=== PATIENT | female | born 1945 | race Caucasian/White ===

== ENCOUNTER 2019-02-21 23:31 | Observation (INO) | payer MEDICARE, OTHER ==
[~2019-02-21] VITALS: Ht 157.5 cm; Wt 68.9 kg
[2019-02-22] VITALS (7 sets, daily range): BP systolic 109–178; BP diastolic 56–81
[2019-02-22 00:09] LABS: BASOPHILS # (AUTO) 0.1 (0.0-0.1); BASOPHILS % 1.2 % (0.0-1.0); EOSINOPHILS # (AUTO) 0.2 (0.0-0.4); EOSINOPHILS % 2.7 % (0.0-6.0); HEMATOCRIT 40.9 % (34.2-44.1); HEMOGLOBIN 13.8 g/dL (12.0-16.0); LYMPHOCYTES # (AUTO) 2.6 (1.0-3.2); LYMPHOCYTES % 44.6 % (18.0-39.1); MEAN CORPUSCULAR HEMOGLOBIN 28.3 pg (28-32); MEAN CORPUSCULAR HGB CONC 33.7 g/dL (31-35); MEAN CORPUSCULAR VOLUME 83.8 fL (81-99); MONOCYTES # (AUTO) 0.5 (0.2-0.8); MONOCYTES % 7.7 % (4.4-11.3); NEUTROPHILS # (AUTO) 2.5 (2.1-6.9); NEUTROPHILS % 43.6 % (38.7-80.0); PLATELET COUNT 240 x10e3/uL (140-360); RED BLOOD COUNT 4.88 x10e6/uL (3.6-5.1); RED CELL DISTRIBUTION WIDTH 12.7 % (11.7-14.4)
[2019-02-22 00:16] LABS: INR 0.87; PROTHROMBIN TIME 12.3 seconds (11.9-14.5)
[2019-02-22 00:17] LABS: PARTIAL THROMBOPLASTIN TIME 29.3 seconds (23.8-35.5)
[2019-02-22 00:24] LABS: ALANINE AMINOTRANSFERASE 14 IU/L (0-55); ALBUMIN 4.4 g/dL (3.5-5.0); ALBUMIN/GLOBULIN RATIO 1.4 (0.8-2.0); ALKALINE PHOSPHATASE 51 IU/L (40-150); BLOOD UREA NITROGEN 20 mg/dL (7-26); BUN/CREATININE RATIO 22 (6-25); CALCIUM 10.1 mg/dL (8.4-10.2); CARBON DIOXIDE 29 mmol/L (22-29); CREATINE KINASE 67 IU/L (29-168); CREATININE, SERUM 0.92 mg/dL (0.57-1.11); EST GLOMERULAR FILTRATION RATE 60 ML/MIN (60-); GLUCOSE 93 mg/dL (74-118)
--- NOTE | 2019-02-22 00:29 | Diagnostic Imaging Report ---
A single frontal view of the chest. HISTORY: Chest pain, congestion COMPARISON: None available. DISCUSSION: Portable technique, limits sensitivity of the exam. Soft tissue attenuation partially limits sensitivity of the exam. Overlying monitoring leads. Tubes/Lines: None Lungs and pleura: Mildly low lung volumes result in bibasilar vascular crowding, accentuation of the pulmonary interstitial markings, central pulmonary vasculature, and the cardiac silhouette. Allowing for these limitations, the findings are as follows: Minimal lingular atelectasis. No evidence of a consolidative pneumonia or pulmonary alveolar edema. No definite pleural effusion or pneumothorax is identified. Heart and mediastinum: The cardiomediastinal silhouette appear(s) unremarkable. Bones and soft tissues: Appear unremarkable, given this limited exam. IMPRESSION: 1. Minimal lingular atelectasis. 2. Otherwise, no acute radiographic abnormality. Signed by: Dr. Perico Rhodes D.O., M.M.M. on 02/22/2019 12:26 AM
[2019-02-22 00:34] LABS: ANION GAP 15.8 mmol/L (8-16); CHLORIDE 98 mmol/L (98-107); SODIUM 140 mmol/L (136-145)
[2019-02-22 00:46] LABS: POTASSIUM 2.8 mmol/L (3.5-5.1)
[2019-02-22] MEDS ORDERED: POTASSIUM CHLORIDE 20 MEQ TAB CR PO STA (00:49)
[2019-02-22] MEDS ORDERED: KCL 20MEQ/.9 SOD CHL 1,000 ML IV ONE (01:00)
[2019-02-22] MEDS ORDERED: ASPIRIN 81 MG CHEW TAB PO ONE (01:00)
[2019-02-22] MEDS ORDERED: ONDANSETRON HCL INJ 2MG/ML 2ML 2 MG/ML VIAL IV PRN (01:00)
--- OUTSIDE RECORDS SUMMARY | 2019-02-22 01:06 | XMS REPORT ---
Author [facility] Address Unknown Phone Unavailable Care Team Providers Care Dredge Master Name Role Phone Noelle SHIRLEY Unavailable Unavailable Problems This patient has no known problems. Allergies, Adverse Reactions, Alerts This patient has no known allergies or adverse reactions. Medications This patient has no known medications. Results Test Description Test Time Test Comments Text Results Atomic Results Result Comments CHEST SINGLE (PORTABLE) 2019-02-22 00:23:00 [place] [address] Patient Name: BRYCE RHODES MR #: [id number] : 1945 Age/Sex: 73/F Req #: [id number] Adm Physician: Ordered by: KIMBERLY SHIRLEY MD Report #: [id number] Location: ER Room/Bed: Procedure: [id number] DX/CHEST SINGLE (PORTABLE) Exam Date: 02/21/19 Exam Time: 2359 REPORT STATUS: Signed A single frontal view of the chest. HISTORY: Chest pain, congestion COMPARISON: None available. DISCUSSION: Portable technique, limits sensitivity of the exam. Soft tissue attenuation partially limits sensitivity of the exam. Overlying monitoring leads. Tubes/Lines: None Lungs and pleura: Mildly low lung volumes result in bibasilar vascular crowding, accentuation of the pulmonary interstitial markings, central pulmonary vasculature, and the cardiac silhouette. Allowing for these limitations, the findings are as follows: Minimal lingular atelectasis. No evidence of a consolidative pneumonia or pulmonary alveolar edema. No definite pleural effusion or pneumothorax is identified. Heart and mediastinum: The cardiomediastinal silhouette appear(s) unremarkable. Bones and soft tissues: Appear unremarkable, given this limited exam. IMPRESSION: 1. Minimal lingular atelectasis. 2. Otherwise, no acute radiographic abnormality. Signed by: Dr. Kapil Rhodes D.O., M.M.M. on 02/22/2019 12:26 AM Dictated By: KAPIL RHODES DO Transcribed By: LONDON on 02/22/1925 COPY TO: KIMBERLY SHIRLEY MD
[2019-02-22] MEDS ORDERED: FAMOTIDINE 20 MG/2 ML VIAL IV ONE (01:08)
[2019-02-22] MEDS ORDERED: FAMOTIDINE 20 MG/2 ML VIAL IV STA (01:32)
[2019-02-22] MEDS ORDERED: OCUVITE TABLET1 EAC1 PO (01:37)
[2019-02-22] MEDS ORDERED: CLONIDINE HCL0.1 MG PO (01:37)
[2019-02-22] MEDS ORDERED: ASPIR 8181 MG PO (01:37)
[2019-02-22] MEDS ORDERED: ATENOLOL25 MG PO (01:37)
[2019-02-22] MEDS ORDERED: CALCIUM 500+D1 EACH PO (01:37)
[2019-02-22] MEDS ORDERED: LEVOTHYROXINE75 MCG PO (01:37)
[2019-02-22] MEDS ORDERED: VITAMIN E400 UNIT PO (01:37)
[2019-02-22] MEDS ORDERED: FISH OIL 1,0001 EAC2 PO (01:37)
[2019-02-22] MEDS ORDERED: FENOFIBRATE145 MG PO (01:37)
[2019-02-22] MEDS ORDERED: ESIDRIX25 MG PO (01:37)
[2019-02-22 01:59] LABS: BACTERIA,URINE MANY /HPF; EPITHELIAL CELLS,URINE FEW /LPF; MUCUS,URINE FEW (RARE); RENAL EPITHELIAL CELLS,URINE FEW; TRANSITIONAL EPI CELLS,URINE FEW; WBC,URINE (MAN) 21-50 /HPF (0-5)
[2019-02-22 02:04] LABS: BILIRUBIN,URINE NEGATIVE (NEGATIVE); CLARITY,URINE SL CLOUDY (CLEAR); COLOR,URINE YELLOW (YELLOW); KETONES,URINE NEGATIVE (NEGATIVE); LEUKOCYTE ESTERASE ,URINE TRACE (NEGATIVE); NITRITE,URINE NEGATIVE (NEGATIVE); PROTEIN,URINE DIPSTICK NEGATIVE (NEGATIVE); URINE UROBILINOGEN 0.2 mg/dL (0.2 - 1)
[2019-02-22] MEDS: HYDRALAZINE HCL 20 MG/ML VIAL IV PRN ×2 (02:51→11:29)
--- NOTE | 2019-02-22 05:30 | NUR ---
PATIENT IS AOX4, NO SIGNS OF DISTRESS NOTED. PATIENT VOICES NO PAIN AT THIS TIME, FAMILY MEMBERS PRESENT. IV IS FLOWING AT ORDERED RATE, BOTH SIDE RAILS ARE UP, BED IN LOWEST POSITION, CALL LIGHT WITHIN REACH, WILL CONTINUE TO MONITOR.
[2019-02-22] MEDS ORDERED: ASPIRIN 81 MG CHEW TAB PO SCH ×2 (07:15→09:00)
[2019-02-22] MEDS ORDERED: LEVOTHYROXINE SODIUM 75 MCG TAB PO SCH (07:30)
[2019-02-22] MEDS ORDERED: FAMOTIDINE 20 MG/2 ML VIAL IV SCH ×2 (09:00→09:30)
[2019-02-22] MEDS ORDERED: ATENOLOL 50 MG TAB PO SCH (09:00)
[2019-02-22] MEDS ORDERED: FENOFIBRATE 145 MG TAB PO SCH (09:00)
[2019-02-22] MEDS ORDERED: POTASSIUM CHLORIDE 20 MEQ TAB CR PO SCH (09:00)
[2019-02-22] MEDS ORDERED: ASPIRIN 81 MG ENTERIC COATED PO SCH (09:00)
[2019-02-22 09:06] LABS: ANION GAP 13.6 mmol/L (8-16); BLOOD UREA NITROGEN 13 mg/dL (7-26); BUN/CREATININE RATIO 17 (6-25); CALCIUM 9.3 mg/dL (8.4-10.2); CARBON DIOXIDE 23 mmol/L (22-29); CHLORIDE 106 mmol/L (98-107); CREATININE, SERUM 0.75 mg/dL (0.57-1.11); EST GLOMERULAR FILTRATION RATE > 60 ML/MIN (60-); GLUCOSE 107 mg/dL (74-118); POTASSIUM 3.6 mmol/L (3.5-5.1); SODIUM 139 mmol/L (136-145)
[2019-02-22 10:10] LABS: CHOL/HDL RATIO 3.6 (3.0-3.6)
[2019-02-22] MEDS ORDERED: ACETAMINOPHEN 325 MG TAB PO PRN ×2 (10:30→11:30)
[2019-02-22 11:19] LABS: CREATINE KINASE MB 4.1 ng/mL (0-5.0)
--- NOTE | 2019-02-22 14:13 | History and Physical ---
REASON FOR ADMISSION: The patient is a 73-year-old female, who comes in with chest pain. HISTORY OF PRESENTING ILLNESS: Ms. Rosalinda Rhodes is a 73-year-old female with history of hypertension, hypothyroidism, was in usual state of health until about the day of admission. At nighttime, the patient started to have some chest pain at rest, waxes and wanes to 30 minutes. The patient did get anxious and the chest pain did get severe as 5/10 in intensity and was transmitting to the back. She had no relieving factors. No nausea. No vomiting. No diaphoresis. No shortness of breath along with that. PAST MEDICAL HISTORY: History of hypertension and hypothyroidism. PAST SURGICAL HISTORY: History of surgical hernia and tubal . MEDICATIONS: She takes at home are: 1. Atenolol 25 mg. 2. Aspirin 81 mg. 3. Calcium daily. 4. Fenofibrate 145 mg. 5. Hydrochlorothiazide 25 mg. 6. Levothyroxine 75 mcg. 7. Vitamin tablets and also vitamin E tablets. SOCIAL HISTORY: No EtOH. No IV drug abuse. No history of smoking. Lives with . FAMILY HISTORY: History of hypertension and CAD in the family. suffers from congestive heart failure. REVIEW OF SYSTEMS: Positive for chest pain. No shortness of breath. No nausea, vomiting, or diarrhea. No constipation. No diaphoresis. No dysuria. No diplopia. No blurry vision. No headaches. PHYSICAL EXAMINATION: GENERAL: The patient is alert and oriented x3. VITAL SIGNS: Temperature is 96.5, pulse of 65, respirations of 12, blood pressure is 178/62, and pulse oximetry on 2L of 100%. HEENT: Normocephalic and atraumatic. Pupils are reactive to light and accommodation. CVS: S1 and S2 normal. Regular rate and rhythm. ABDOMEN: Nontender and nondistended. EXTREMITIES: No clubbing. No cyanosis. The patient has trace lymphedema. NEUROLOGIC: Alert and oriented x3 with no focal deficits. LABORATORY VALUES: The patient's white count was within normal limits. Hemoglobin of 13.8, hematocrit of 40.9, lymphocytes of 45.6. Chemistry; sodium was 140 and potassium was 3.8. BNP was 35. Troponin was less than 0.01. Chest x-ray within normal limits. ASSESSMENT: 1. Chest pain. 2. Hypokalemia. 3. History of hypertension. 4. History of hypothyroidism. PLAN: To replace potassium. Consult with Dr. Cheema has been done. Echocardiogram has been ordered. The patient's medications have been restarted except for hydrochlorothiazide, which could be the inciting factor of hypokalemia. Further recommendation per clinical course. The patient can be ruled out for immediate discharge. We will keep her in observation. MD BEKA DuranJ/MODL /[id number]
[2019-02-22 16:37] LABS: CREATINE KINASE MB 5.3 ng/mL (0-5.0)
--- NOTE | 2019-02-22 18:15 | NUR ---
Called Dr. Gilmer Cheema, made aware patients' blood pressure 162/78 hr 75 received orders to go ahead and discharge patient and instruct her to take her Clonidine when she gets home.
--- NOTE | 2019-02-22 18:46 | NUR ---
Patient discharged home, verbalized understanding of d/c instructions.
--- NOTE | 2019-02-22 18:54 | Consultation ---
DATE OF CONSULTATION: Cardiology Consultation REASON FOR CONSULTATION: Chest pain. HISTORY OF PRESENT ILLNESS: This is a 73-year-old woman with a history of systemic hypertension and hypothyroidism, who presented to the emergency department with nonspecific symptoms. The patient states that she just felt unwell and described some vague atypical chest discomfort, no exacerbating or relieving factors, nonradiating, dmfv-pm-cqeoskqa intensity, some shortness of breath. She was found to have hypokalemia with a potassium of 2.8. REVIEW OF SYSTEMS: A 12-point review of system was conducted and is negative except as stated above in the HPI. PAST MEDICAL HISTORY: As stated above. PAST SURGICAL HISTORY: None recent. FAMILY HISTORY: No premature coronary artery disease or sudden cardiac . SOCIAL HISTORY: No illicit drug, alcohol, or tobacco use. ALLERGIES: NO KNOWN DRUG ALLERGIES. MEDICATIONS: See medications reconciliation form. PHYSICAL EXAMINATION: VITAL SIGNS: Temperature is 97.8, heart rate is 68, respirations are 16, blood pressure is 156/62, oxygen saturation 100% on room air. GENERAL: Well appearing, well built, in no apparent distress. Alert and oriented x3. HEAD: Normocephalic, atraumatic. EYES: Extraocular muscles are intact. Conjunctivae are clear. NECK: No JVD. No bruits. CARDIOVASCULAR: Regular rate and rhythm. Mild systolic murmur at the left lower sternal border. LUNGS: Clear to auscultation. ABDOMEN: Soft, nontender, and nondistended. EXTREMITIES: No clubbing, cyanosis, or edema. VASCULAR: 2+ pulses. SKIN: Warm, dry, and intact. NEUROLOGIC: No focal deficits noted. Cranial nerves grossly intact. PSYCHIATRIC: Normal mood and affect. LABORATORY DATA: Reviewed. Current potassium is 4.2. Troponins negative x3. LDL is 120. A 12-lead electrocardiogram shows sinus rhythm with right bundle-branch block. A 2D echocardiogram showed preserved left ventricular systolic function with an estimated ejection fraction of 55% to 60% and pixr-bk-xxloszld mitral stenosis. IMPRESSION: 1. Precordial pain. 2. Hypokalemia. 3. Hypertension. 4. Hypothyroidism. 5. Mitral stenosis. 6. Abnormal electrocardiogram. RECOMMENDATIONS: The patient is ruled out for acute myocardial infarction. Her symptoms are atypical. Her echocardiogram showed preserved left ventricular systolic function with [id number]-xl-ebsyxmdg mitral stenosis. Continue current cardiovascular medications. The patient may be discharged from a cardiovascular standpoint with outpatient stress testing. DO SOPHIE Stapleton/MAMTA /[id number]
[2019-02-22] MEDS ORDERED: CLONIDINE HCL 0.1 MG TAB PO SCH (21:00)
[2019-02-25] MEDS ORDERED: ASPIRIN 81 MG CHEW TAB PO SCH (09:00)
== END 2019-02-22 18:26 | disposition home or self-care (01) ==
LOC: ER 23:31 → ERHOLD 02-22 00:58 → IMCU 02-22 02:09 → ERHOLD 02-22 02:35 → IMCU 02-22 04:43
PROVIDERS: ADMIT Family Medicine; ATTEND Family Medicine
DX: R07.2 Precordial pain (principal); I10 Essential (primary) hypertension; E03.9 Hypothyroidism, unspecified; E87.6 Hypokalemia; I05.0 Rheumatic mitral stenosis; R94.31 Abnormal electrocardiogram [ECG] [EKG]
CPT/HCPCS: 36415; 71045; 80048; 80053; 80061; 81001; 82550; 82553; 83880; 84132; 84484; 85025; 85610; 85730; 93005; 93306; 99284; G0378; J0360

== ENCOUNTER → 2019-05-21 | Outpatient (CLI) | payer OTHER ==
[~2019-05-21] MED LIST: ASPIR 8181 MG PO; ATENOLOL25 MG PO; CALCIUM 500+D1 EACH PO; CLONIDINE HCL0.1 MG PO; ESIDRIX25 MG PO; FENOFIBRATE145 MG PO; FISH OIL 1,0001 EAC2 PO; IOPAMIDOL 370 MG/ML 200 ML INFUS..BTL INJ ONE; LEVOTHYROXINE75 MCG PO; METOPROLOL TARTRATE 25 MG TAB ONE; METOPROLOL TARTRATE INJ 1 MG/ML VIAL ONE; NITROGLYCERIN 0.4 MG SUBL ONE; OCUVITE TABLET1 EAC1 PO; SODIUM CHLORIDE 0.9% 100 ML ONE; VITAMIN E400 UNIT PO
[2019-05-21 11:39] LABS: BLOOD UREA NITROGEN 18 mg/dL (7-26); BUN/CREATININE RATIO 21 (6-25); CREATININE, SERUM 0.85 mg/dL (0.57-1.11); EST GLOMERULAR FILTRATION RATE > 60 ML/MIN (60-)
--- NOTE | 2019-05-21 15:41 | Diagnostic Imaging Report ---
EXAM: CALCIUM SCORE AND CORONARY CTA INDICATION: ^[id number] ^1400 ^CORONARY ARTERY DISEASE COMPARISON: None. TECHNIQUE: Multi-detector CT technology was employed (64 MDCT Tilson). Minimal slice thickness with retrospective gating was performed following the intravenous administration of contrast material. The patient was premedicated with 50 mg by mouth and 5 mg i.v. metoprolol and 0.4 mg sublingual nitroglycerin for heart rate control and coronary dilation, respectively. IV CONTRAST: 100 mL of Isovue-370 ORAL CONTRAST: None COMPLICATIONS: None RADIATION DOSE: Total DLP: 1335.3 mGy*cm Estimated effective dose: (DLP x 0.015 x size factor) mSv CTDIvol has been reviewed. It is below the limits set by the Radiation Protocol Committee (RPC). For optimization of anatomic evaluation, multiplanar reconstruction, maximum intensity projections, and advanced 3-D off-line postprocessing were performed on a dedicated stand-alone workstation under the direct supervision of the interpreting physician. QUALITY: Fair due to motion artifact FINDINGS: CALCIUM SCORE: The observed Agatston Calcium Score of 147 is at percentile between 50 and 75% for subjects of the same age and gender who are free of clinical cardiovascular disease and treated diabetes. The Agatston score for each vessel is as follows: LM: 31.3 LAD: 84.6 LCx: 31.5 RCA: 0 DISTRIBUTION OF THE CALCIFIED PLAQUES: Moderate calcified plaques throughout the coronary arteries, mainly in the mid LAD. CORONARY ANATOMY: There is normal origin of the coronary arteries. Left Main Coronary Artery: The left main is a short (3 mm length) but normal sized vessel that bifurcates into the LAD and circumflex. Eccentric noncalcified plaque in the ostium results in moderate stenosis (approximate 40%). Left Anterior Descending Coronary Artery: The LAD is a normal size vessel that wraps around the apex. It gives rise to 2 acute diagonal branches. Few scattered calcified plaque throughout the LAD, worse in the mid segment which results in moderate stenosis (50-69%). Left Circumflex Coronary Artery: The LCX is a normal size vessel, which is non-dominant. It gives rise to 1 small obtuse marginal branch. Complex calcified and noncalcified plaque in the proximal LCx results in severe stenosis (70-99%). Then, it gives off a small obtuse marginal branch, which is patent. The LCX is no longer visualized at the AV groove. Right Coronary Artery: The RCA is a large size vessel, which is dominant. It gives rise to a conus branch, AV aramis branch, and 2 acute marginal branches. In its distal segment it bifurcates into the PDA and PV branch. There is no evidence of atherosclerotic changes or stenotic disease. CARDIAC MORPHOLOGY AND FUNCTION: The right and left atria and ventricles are morphologically normal. LVEF: 57%, LV end diastolic volume: 112.6 cc LV end systolic volume: 47.8 cc LV stroke volume: 65 cc LIMITED CHEST: Limited views of the visualized chest show no abnormality within chest wall and mediastinum. No mediastinal lymphadenopathy. The visualized lungs are clear. The visualized portions of the ascending and descending thoracic aorta are of normal size. Small hiatal hernia. LIMITED ABDOMEN: Limited images of the upper abdomen reveal no abnormalities of the visualized organs. BONES: No acute osseous abnormalities. IMPRESSION: Image quality degraded by motion artifact. 1. Total Agatston Calcium Score: 147 that corresponds to percentile between 50 and 75%, representing moderate plaque burden. 2. Normal coronary anatomy. 3. Scattered calcified and noncalcified atherosclerotic plaques resulting in moderate stenosis of the left main and mid LAD and severe stenosis of the proximal LCx. CAD-TRINITY: 4A Recommendation: cardiac catheterization. Reference: [email or web address] A message with call back number was left on Dr Jason Cheema office on 05/22/2019 at 9:40 AM. Signed by: Dr. Sheree Mcgraw M.D. on 05/22/2019 9:48 AM
== END ==
LOC: CT 09:46
PROVIDERS: ATTEND Internal Medicine Cardiovascular Disease
DX: I25.10 Atherosclerotic heart disease of native coronary artery without angina pectoris (principal)
CPT/HCPCS: 36415; 75574; 82565; 84520; J7050; Q9967

== ENCOUNTER → 2019-08-22 | Day surgery (SDC) | payer MEDICARE, OTHER ==
[2019-08-19 10:15] LABS: BASOPHILS # (AUTO) 0.1 (0.0-0.1); BASOPHILS % 1.5 % (0.0-1.0); EOSINOPHILS # (AUTO) 0.2 (0.0-0.4); EOSINOPHILS % 3.3 % (0.0-6.0); HEMATOCRIT 40.5 % (34.2-44.1); HEMOGLOBIN 13.5 g/dL (12.0-16.0); LYMPHOCYTES # (AUTO) 1.7 (1.0-3.2); LYMPHOCYTES % 35.8 % (18.0-39.1); MEAN CORPUSCULAR HEMOGLOBIN 28.7 pg (28-32); MEAN CORPUSCULAR HGB CONC 33.3 g/dL (31-35); MEAN CORPUSCULAR VOLUME 86.2 fL (81-99); MONOCYTES # (AUTO) 0.4 (0.2-0.8); MONOCYTES % 7.3 % (4.4-11.3); NEUTROPHILS # (AUTO) 2.5 (2.1-6.9); NEUTROPHILS % 51.9 % (38.7-80.0); PLATELET COUNT 271 x10e3/uL (140-360); RED CELL DISTRIBUTION WIDTH 12.4 % (11.7-14.4)
[2019-08-19 10:27] LABS: INR 0.88; PROTHROMBIN TIME 12.5 seconds (11.9-14.5)
[2019-08-19 10:37] LABS: ALANINE AMINOTRANSFERASE 15 IU/L (0-55); ALBUMIN 4.3 g/dL (3.5-5.0); ALBUMIN/GLOBULIN RATIO 1.3 (0.8-2.0); ALKALINE PHOSPHATASE 47 IU/L (40-150); ANION GAP 15.7 mmol/L (8-16); BLOOD UREA NITROGEN 13 mg/dL (7-26); BUN/CREATININE RATIO 14 (6-25); CALCIUM 9.7 mg/dL (8.4-10.2); CARBON DIOXIDE 28 mmol/L (22-29); CHLORIDE 104 mmol/L (98-107); EST GLOMERULAR FILTRATION RATE > 60 ML/MIN (60-); GLUCOSE 87 mg/dL (74-118); POTASSIUM 4.7 mmol/L (3.5-5.1); SODIUM 143 mmol/L (136-145)
[~2019-08-22] VITALS: Ht 157.5 cm; Wt 64.4 kg
[2019-08-22] VITALS (7 sets, daily range): BP systolic 114–206; BP diastolic 63–81
[~2019-08-22] MED LIST changes: +CALCIUM-MAGNES1 EAC6 PO; +FENTANYL CITRATE/PF 100MCG/2 ML INJ ONE; +HEPARIN SOD (PORCINE) 1000 UNIT/ML 30ML ONE; +HEPARIN SOD/SOD CHLORIDE 2,000 ML ONE; +LIDOCAINE HCL 2% LOCAL 20 ML VIAL ONE; +LISINOPRIL10 MG PO; +LUTEIN6 M1 PO; -METOPROLOL TARTRATE 25 MG TAB ONE; -METOPROLOL TARTRATE INJ 1 MG/ML VIAL ONE; +MIDAZOLAM HCL 2 MG/2 ML VIAL ONE; -NITROGLYCERIN 0.4 MG SUBL ONE; +NITROGLYCERIN/D5W 200 MCG/ML 250 ML ONE; -SODIUM CHLORIDE 0.9% 100 ML ONE; +SODIUM CHLORIDE 0.9% 1000ML 1,000 ML ONE; +VERAPAMIL HCL 2.5 MG/ML 2 ML VIAL ONE; +VITAMIN B-121000 MCG PO
--- NOTE | 2019-08-22 11:00 | NUR ---
1100 am RADIAL COMPRESSION REMOVAL NOTE: Initial Cuff volume 12 cc 12n am -2cc Removed No hematoma/bleeding noted with normal neurovascular function. 1215 pm -5cc Removed No hematoma/ bleeding noted with normal neurovascular function. 1230 pm -5cc Removed No hematoma/bleeding noted with normal neurovascular function. Air removal completed. Stasis achieved sterile 2x2,Tegaderm, Coban dressing No hematoma, bleeding noted with normal neurovascular function. Wrist splint in place. Pt instructed on POC. Ds/Rn
--- NOTE | 2019-08-22 11:00 | NUR ---
1100 am RECEIVING NOTE FRONT OFFICE [facility] DEPT............................................................... Bedside report received from Maria Luz DELGADO. Identifierx2. Alert oriented and appropriate, PERRLA, respirations even and unlabored to room air. Pulses x4 extremities equal and strong. Pedal pulses PT/DP x4 and marked. Cap fill brisk < 3 sec. Rt Tr band ok to decrease at 12noon Skin warm and dry integrity appears D/I IV 20g to left hand, presents healthy w/o s/s of infiltration or complaint. Abdomen soft and supple. pt offered toileting, denies need to urinate or defecate. No personal affects with patient. Family at bedside. Pt and family verbalizes understanding of POC. Currently w/o complaint of pain or need. For dc today after TR band off. F/o two weeks. lisa/josé luis
--- NOTE | 2019-08-22 12:45 | NUR ---
1245pm [facility] DISCHARGE NURSING NOTE Pt meets DC criteria. assessed for s/s of complication and presence of hematoma. Skin warm, dry, no discolor, and pulses present. IV removed from hand. Distal tip appears intact. VS WNL. Pt denies pain, sob, or need at this time. Family at beside given. review of discharge paperwork and follow up instructions. Verbalized understanding. Pt to wheelchair and transported to front of hospital. Transferred to private vehicle under own strength w/o incident with DC paperwork in hand. - laura Addendum: 08/22/19 at 1608 by Jennifer Monique RN DISCHARGE FROM [facility] [id number]
--- NOTE | 2019-08-22 20:48 | Operative Report ---
DATE OF PROCEDURE: 08/22/2019 SURGEON: Jason Cheema DO PROCEDURES PERFORMED: 1. Conscious sedation, 26 minutes. 2. Selective coronary angiography x2. 3. Left heart catheterization. PREPROCEDURE DIAGNOSIS: Abnormal stress test. POSTPROCEDURE DIAGNOSIS: Nonobstructive coronary artery disease. ESTIMATED BLOOD LOSS: Less than 20 mL. SPECIMENS REMOVED: None. PROCEDURE IN DETAIL: After informed consent was obtained, the patient was brought to the cardiac catheterization laboratory in the fasting and nonsedated state. Right wrist was prepped and draped in usual sterile fashion. A 2% lidocaine was instilled over the right wrist for local anesthesia. Using micropuncture needle, the right radial artery was accessed via modified Seldinger technique and a 6-Wolof sheath was placed. Next, diagnostic coronary angiography and left heart catheterization was performed using a TIG catheter. The patient tolerated the procedure well. No immediate complications, and was transferred back to room in stable condition. Mild sedation was provided by myself and monitored by the lab nurse nurse. The patient's physiologic status and mental status were monitored throughout the case for 26 minutes. PROCEDURE FINDINGS: 1. Left main coronary artery is patent without significant coronary artery disease. 2. Left anterior descending coronary is a mild 20% stenosis. 3. The left circumflex coronary artery provides one obtuse marginal vessel and has a proximal 30% stenosis. 4. The right coronary artery is a very large vessel with luminal irregularities. This provides a large posterior lateral and posterior descending coronary artery. 5. Left ventricular end-diastolic pressure is 12 mmHg. IMPRESSION: Nonobstructive coronary disease. RECOMMENDATIONS: Continue medical therapy. Jason Cheema DO BM/MODL /[id number]
== END | disposition home or self-care (01) ==
LOC: CATH LAB 06:53
PROVIDERS: ATTEND Internal Medicine Cardiovascular Disease
DX: I25.10 Atherosclerotic heart disease of native coronary artery without angina pectoris (principal); R94.39 Abnormal result of other cardiovascular function study; Z01.812 Encounter for preprocedural laboratory examination; Z79.82 Long term (current) use of aspirin
CPT/HCPCS: 36415; 80053; 85025; 85610; 93458; C1887; J1644; J2001; J2250; J3010; J7030; Q9967; 99152; 99153

== ENCOUNTER 2021-03-14 00:55 | Observation (INO) | payer MEDICARE ==
[~2021-03-14] VITALS: Ht 154.9 cm; Wt 62.6 kg
[~2021-03-14 00:55] MED LIST changes: -FENTANYL CITRATE/PF 100MCG/2 ML INJ ONE; -HEPARIN SOD (PORCINE) 1000 UNIT/ML 30ML ONE; -HEPARIN SOD/SOD CHLORIDE 2,000 ML ONE; -IOPAMIDOL 370 MG/ML 200 ML INFUS..BTL INJ ONE; -LIDOCAINE HCL 2% LOCAL 20 ML VIAL ONE; -MIDAZOLAM HCL 2 MG/2 ML VIAL ONE; -NITROGLYCERIN/D5W 200 MCG/ML 250 ML ONE; -SODIUM CHLORIDE 0.9% 1000ML 1,000 ML ONE; -VERAPAMIL HCL 2.5 MG/ML 2 ML VIAL ONE
[2021-03-14] MEDS ORDERED: METOPROLOL TARTRATE INJ 1 MG/ML VIAL IV ONE (01:00)
[2021-03-14 01:36] LABS: BASOPHILS # (AUTO) 0.1 (0.0-0.1); BASOPHILS % 1.4 % (0.0-1.0); EOSINOPHILS # (AUTO) 0.2 (0.0-0.4); EOSINOPHILS % 2.6 % (0.0-6.0); HEMATOCRIT 41.3 % (34.2-44.1); HEMOGLOBIN 13.4 g/dL (12.0-16.0); LYMPHOCYTES # (AUTO) 2.3 (1.0-3.2); MEAN CORPUSCULAR HEMOGLOBIN 27.7 pg (28-32); MEAN CORPUSCULAR HGB CONC 32.4 g/dL (31-35); MEAN CORPUSCULAR VOLUME 85.3 fL (81-99); MONOCYTES # (AUTO) 0.4 (0.2-0.8); MONOCYTES % 5.6 % (4.4-11.3); NEUTROPHILS # (AUTO) 3.7 (2.1-6.9); NEUTROPHILS % 56.2 % (38.7-80.0); PLATELET COUNT 244 x10e3/uL (140-360); RED BLOOD COUNT 4.84 x10e6/uL (3.6-5.1)
[2021-03-14 01:37] LABS: CLARITY,URINE CLEAR (CLEAR); COLOR,URINE YELLOW (YELLOW); KETONES,URINE NEGATIVE (NEGATIVE); LEUKOCYTE ESTERASE ,URINE NEGATIVE (NEGATIVE); NITRITE,URINE NEGATIVE (NEGATIVE); PROTEIN,URINE DIPSTICK NEGATIVE (NEGATIVE); URINE UROBILINOGEN 0.2 mg/dL (0.2 - 1)
[2021-03-14 01:42] LABS: BACTERIA,URINE FEW /HPF; EPITHELIAL CELLS,URINE RARE /LPF; RBC,URINE 0-5 /HPF (0-5); WBC,URINE (MAN) 0-5 /HPF (0-5)
[2021-03-14 01:55] LABS: ALBUMIN 4.3 g/dL (3.5-5.0); ALBUMIN/GLOBULIN RATIO 1.3 (0.8-2.0); ANION GAP 17.6 mmol/L (8-16); CALCIUM 10.2 mg/dL (8.4-10.2); CREATININE, SERUM 0.91 mg/dL (0.57-1.11); POTASSIUM 3.6 mmol/L (3.5-5.1)
[2021-03-14 02:01] LABS: CREATINE KINASE MB 2.3 ng/mL (0-5.0)
[2021-03-14] MEDS ORDERED: HYDRALAZINE HCL 20 MG/ML VIAL IV ONE (03:15)
[2021-03-14] MEDS ORDERED: CLONIDINE HCL 0.2 MG TAB PO ONE (04:30)
[2021-03-14 10:56] VITALS: BP 193/79
[2021-03-14 12:13] VITALS: BP 193/79
[2021-03-14 12:17] VITALS: BP 193/79
[2021-03-14] MEDS: LOSARTAN POTASSIUM 100 MG TAB PO SCH ×2 (12:30→17:24)
[2021-03-14] MEDS: ATENOLOL 50 MG TAB PO SCH (12:30)
[2021-03-14] MEDS ORDERED: HYDRALAZINE HCL 20 MG/ML VIAL IV NR (15:19)
[2021-03-14 16:00] VITALS: BP 200/70
[2021-03-14] MEDS: AMLODIPINE BESYLATE 10 MG TAB PO SCH (17:23)
[2021-03-14 19:40] VITALS: BP 161/66
[2021-03-14 20:00] VITALS: BP 161/66
[2021-03-15] VITALS: BP 192/79
[2021-03-15] MEDS ORDERED: CLONIDINE HCL 0.1 MG TAB PO PRN
[2021-03-15 04:00] VITALS: BP 152/64
[2021-03-15] MEDS ORDERED: LEVOTHYROXINE SODIUM 75 MCG TAB PO SCH (06:00)
[2021-03-15 07:51] VITALS: BP 174/67
[2021-03-15 08:34] VITALS: BP 174/67
[2021-03-15] MEDS: AMLODIPINE BESYLATE 10 MG TAB PO SCH (08:49)
[2021-03-15] MEDS: LOSARTAN POTASSIUM 100 MG TAB PO SCH (08:49)
[2021-03-15] MEDS: ATENOLOL 50 MG TAB PO SCH (08:50)
[2021-03-15] MEDS ORDERED: ASPIRIN 81 MG CHEW TAB PO SCH (09:00)
[2021-03-15] MEDS ORDERED: CYANOCOBALAMIN 1,000 MCG TAB PO SCH (09:00)
[2021-03-15] MEDS ORDERED: FENOFIBRATE 145 MG TAB PO SCH (09:00)
[2021-03-15 11:59] VITALS: BP_SYST 141; BP_SYST 167; BP_DIAS 60; BP_DIAS 73
== END 2021-03-15 11:53 | disposition home or self-care (01) ==
LOC: ER 01:01 → ERHOLD 04:50 → MED/SURG2 10:57
PROVIDERS: ADMIT Internal Medicine; ATTEND Internal Medicine
DX: I16.0 Hypertensive urgency (principal); R07.9 Chest pain, unspecified; E03.9 Hypothyroidism, unspecified; Z20.822 Contact with and (suspected) exposure to COVID-19; E78.5 Hyperlipidemia, unspecified; F41.9 Anxiety disorder, unspecified
CPT/HCPCS: 36415; 71045; 80053; 81001; 82550; 82553; 83880; 84484; 85025; 93005; 99284; G0378 ×2; J0360; U0002

== ENCOUNTER 2021-03-27 12:21 | Emergency (ER) | payer MEDICARE ==
[~2021-03-27] VITALS: Ht 154.9 cm; Wt 60.8 kg
[2021-03-27] MEDS ORDERED: CASIRIVIMAB/IMDEVIMAB 10 ML in SODIUM CHLORIDE 0.9% 100 ML IV ONE (12:45)
== END 2021-03-27 14:14 | disposition home or self-care (01) ==
LOC: ER 12:42
DX: R05 Cough (principal); U07.1 COVID-19; I10 Essential (primary) hypertension; E78.5 Hyperlipidemia, unspecified; E03.9 Hypothyroidism, unspecified
CPT/HCPCS: 99283; J7050

== ENCOUNTER 2022-07-18 18:10 | Observation (INO) | payer MEDICARE ==
[~2022-07-18] VITALS: Ht 154.9 cm; Wt 60.8 kg
[2022-07-18] MEDS ORDERED: DEXTROSE 50% SYRINGE 50 ML IV ONE ×2 (18:30→18:38)
[2022-07-18 18:34] LABS: BASOPHILS % 0.6 % (0.0-1.0); EOSINOPHILS # (AUTO) 0.2 (0.0-0.4); EOSINOPHILS % 2.4 % (0.0-6.0); HEMATOCRIT 45.7 % (34.2-44.1); HEMOGLOBIN 14.1 g/dL (12.0-16.0); LYMPHOCYTES # (AUTO) 2.7 (1.0-3.2); LYMPHOCYTES % 43.5 % (18.0-39.1); MEAN CORPUSCULAR HEMOGLOBIN 28.7 pg (28-32); MEAN CORPUSCULAR HGB CONC 30.9 g/dL (31-35); MEAN CORPUSCULAR VOLUME 92.9 fL (81-99); MONOCYTES # (AUTO) 0.4 (0.2-0.8); MONOCYTES % 6.5 % (4.4-11.3); NEUTROPHILS # (AUTO) 2.9 (2.1-6.9); NEUTROPHILS % 46.7 % (38.7-80.0); PLATELET COUNT 262 x10e3/uL (140-360); RED BLOOD COUNT 4.92 x10e6/uL (3.6-5.1); RED CELL DISTRIBUTION WIDTH 12.2 % (11.7-14.4)
[2022-07-18 18:51] LABS: CLARITY,URINE SL CLOUDY (CLEAR); COLOR,URINE YELLOW (YELLOW); LEUKOCYTE ESTERASE ,URINE NEGATIVE (NEGATIVE); NITRITE,URINE NEGATIVE (NEGATIVE)
[2022-07-18 18:52] LABS: KETONES,URINE NEGATIVE (NEGATIVE); PROTEIN,URINE DIPSTICK NEGATIVE (NEGATIVE); URINE UROBILINOGEN 0.2 mg/dL (0.2 - 1)
[2022-07-18 18:55] LABS: ALBUMIN 4.7 g/dL (3.5-5.0); ALBUMIN/GLOBULIN RATIO 1.6 (0.8-2.0); ANION GAP 20.1 mmol/L (8-16); CREATININE, SERUM 0.85 mg/dL (0.57-1.11); POTASSIUM 3.1 mmol/L (3.5-5.1)
[2022-07-18 19:02] LABS: BACTERIA,URINE FEW /HPF; WBC,URINE (MAN) 0-5 /HPF (0-5)
[2022-07-18 19:03] LABS: AMORPHOUS SEDIMENT,URINE MODERATE (FEW)
[2022-07-18] MEDS ORDERED: SODIUM CHLORIDE 0.9% 1000ML 1,000 ML ONE (19:26)
[2022-07-18] MEDS ORDERED: SODIUM CHLORIDE 0.9% 1000ML 1,000 ML IV ONE (19:45)
[2022-07-18] MEDS ORDERED: KCL 20MEQ/.9 SOD CHL 1,000 ML IV ONE (21:30)
[2022-07-18 22:30] VITALS: BP 188/76
[2022-07-18 23:00] VITALS: BP 188/76
[2022-07-18] MEDS ORDERED: HYDROCHLOROTHIA25 MG PO (23:01)
[2022-07-18] MEDS ORDERED: LOSARTAN POTASS50 MG PO (23:01)
[2022-07-18] MEDS ORDERED: AMLODIPINE BESYL5 MG PO (23:01)
[2022-07-19 04:00] VITALS: BP 175/72
[2022-07-19 05:37] LABS: BASOPHILS # (AUTO) 0.1 (0.0-0.1); BASOPHILS % 0.9 % (0.0-1.0); EOSINOPHILS # (AUTO) 0.1 (0.0-0.4); EOSINOPHILS % 1.7 % (0.0-6.0); HEMATOCRIT 34.7 % (34.2-44.1); HEMOGLOBIN 11.4 g/dL (12.0-16.0); LYMPHOCYTES # (AUTO) 1.6 (1.0-3.2); LYMPHOCYTES % 30.4 % (18.0-39.1); MEAN CORPUSCULAR HEMOGLOBIN 28.6 pg (28-32); MEAN CORPUSCULAR HGB CONC 32.9 g/dL (31-35); MEAN CORPUSCULAR VOLUME 87.2 fL (81-99); MONOCYTES # (AUTO) 0.4 (0.2-0.8); MONOCYTES % 6.9 % (4.4-11.3); NEUTROPHILS # (AUTO) 3.2 (2.1-6.9); NEUTROPHILS % 59.9 % (38.7-80.0); PLATELET COUNT 212 x10e3/uL (140-360); RED BLOOD COUNT 3.98 x10e6/uL (3.6-5.1); RED CELL DISTRIBUTION WIDTH 12.3 % (11.7-14.4)
[2022-07-19 05:57] LABS: ANION GAP 13.6 mmol/L (8-16); CALCIUM 8.6 mg/dL (8.4-10.2); CHOL/HDL RATIO 3.4 (3.0-3.6); CREATININE, SERUM 0.64 mg/dL (0.57-1.11); POTASSIUM 3.6 mmol/L (3.5-5.1)
[2022-07-19 06:33] LABS: CREATINE KINASE MB 2.3 ng/mL (0-5.0)
[2022-07-19 08:00] VITALS: BP 189/81
[2022-07-19] MEDS ORDERED: HYDRALAZINE HCL 20 MG/ML VIAL IV PRN (10:15)
[2022-07-19 11:58] VITALS: BP 182/70
[2022-07-19] MEDS ORDERED: ATENOLOL 50 MG TAB PO SCH (13:00)
[2022-07-19 13:52] LABS: CREATINE KINASE MB 2.7 ng/mL (0-5.0)
[2022-07-19 16:00] VITALS: BP 187/72
[2022-07-19] MEDS ORDERED: LOSARTAN POTASSIUM 25 MG TAB PO SCH (17:00)
[2022-07-19] MEDS ORDERED: NON-FORMULARY MEDICATION (Losartan Potassium 50 MG) PO SCH (17:00)
[2022-07-19 21:29] VITALS: BP 203/81
[2022-07-20] MEDS ORDERED: LEVOTHYROXINE SODIUM 75 MCG TAB PO SCH (06:30)
[2022-07-20] MEDS ORDERED: FENOFIBRATE 145 MG TAB PO SCH (09:00)
[2022-07-20] MEDS ORDERED: HYDROCHLOROTHIAZIDE 25 MG TAB PO SCH (09:00)
[2022-07-20] MEDS ORDERED: AMLODIPINE BESYLATE 5 MG TAB PO SCH (09:00)
[2022-07-20] MEDS ORDERED: NON-FORMULARY MEDICATION (Atenolol 25 MG) PO SCH (09:00)
== END 2022-07-19 21:09 | disposition home or self-care (01) ==
LOC: ER 18:14 → ERHOLD 21:28 → MED/SURG 22:17
PROVIDERS: ADMIT Family Medicine; ATTEND Family Medicine
DX: E87.20 Acidosis, unspecified (principal); R07.89 Other chest pain; E78.5 Hyperlipidemia, unspecified; I10 Essential (primary) hypertension; Z20.822 Contact with and (suspected) exposure to COVID-19; E03.9 Hypothyroidism, unspecified
CPT/HCPCS: 36415 ×2; 70450; 71045; 80048; 80053; 80061; 81001; 82550 ×2; 82553 ×2; 82948; 83605; 84484 ×2; 85025 ×2; 87040; 93005; 99284; G0378 ×2; J0696; J7030; J7799; U0002

== ENCOUNTER 2024-02-24 22:14 | Emergency (ER) | payer MEDICARE ==
[~2024-02-24] VITALS: Ht 154.9 cm; Wt 60.8 kg
[~2024-02-24 22:14] MED LIST changes: +AMLODIPINE BESYL5 MG PO; +HYDROCHLOROTHIA25 MG PO; +LOSARTAN POTASS50 MG PO
[2024-02-24 22:17] VITALS: PULSE 97; RESP 18; TEMP 98.2
[2024-02-24 22:33] LABS: BASOPHILS % 0.7 % (0.0-1.0); EOSINOPHILS % 0.7 % (0.0-6.0); HEMATOCRIT 39.8 % (34.2-44.1); HEMOGLOBIN 12.7 g/dL (12.0-16.0); LYMPHOCYTES # (AUTO) 1.2 (1.0-3.2); LYMPHOCYTES % 20.6 % (18.0-39.1); MEAN CORPUSCULAR HEMOGLOBIN 27.7 pg (28-32); MEAN CORPUSCULAR HGB CONC 31.9 g/dL (31-35); MEAN CORPUSCULAR VOLUME 86.9 fL (81-99); MONOCYTES # (AUTO) 0.3 (0.2-0.8); MONOCYTES % 4.3 % (4.4-11.3); NEUTROPHILS # (AUTO) 4.3 (2.1-6.9); NEUTROPHILS % 73.5 % (38.7-80.0); PLATELET COUNT 388 x10e3/uL (140-360); RED BLOOD COUNT 4.58 x10e6/uL (3.6-5.1); WHITE BLOOD COUNT 5.88 x10e3/uL (4.8-10.8)
[2024-02-24 22:50] LABS: LIPASE 25 U/L (8-78)
[2024-02-24 22:52] LABS: ALBUMIN 4.1 g/dL (3.5-5.0); ANION GAP 17.9 mmol/L (8-16); BILIRUBIN,TOTAL 0.4 mg/dL (0.2-1.2); CALCIUM 10.5 mg/dL (8.4-10.2); CREATININE, SERUM 1.39 mg/dL (0.57-1.11); POTASSIUM 3.9 mmol/L (3.5-5.1); TOTAL PROTEIN 8.3 g/dL (6.5-8.1)
[2024-02-24] MEDS: ASPIRIN 81 MG CHEW TAB PO ONE (22:59)
[2024-02-24] MEDS: CLOPIDOGREL BISULFATE 75 MG TAB PO ONE (22:59)
[2024-02-24] MEDS ORDERED: HEPARIN SOD (PORCINE) 5,000 UNIT/ML VIAL ONE (23:00)
[2024-02-24] MEDS ORDERED: CLOPIDOGREL BISULFATE 75 MG TAB ONE (23:00)
[2024-02-24] MEDS: HEPARIN SOD (PORCINE) 5,000 UNIT/ML VIAL IV ONE (23:00)
[2024-02-24 23:01] LABS: TROPONIN I < 0.05 ng/mL (0.0-0.40)
[2024-02-24] MEDS ORDERED: ALTEPLASE 100 MG/VIAL ONE (23:01)
[2024-02-24] MEDS: SODIUM CHLORIDE 0.9% IV ONE (23:01)
[2024-02-24] MEDS: ALTEPLASE IV ONE (23:01)
[2024-02-24 23:26] VITALS: BP 152/94; PULSE 110; RESP 15; TEMP 98.2; O2SAT 98
[2024-02-24] MEDS: FENTANYL CITRATE/PF 100MCG/2 ML INJ IV ONE (23:30)
[2024-02-24] MEDS: ASPIRIN 81 MG CHEW TAB ONE (23:34)
== END 2024-02-24 23:34 | disposition short-term general hospital (02) ==
LOC: ER 22:18
DX: R06.02 Shortness of breath (principal); I21.19 ST elevation (STEMI) myocardial infarction involving other coronary artery of inferior wall; I48.91 Unspecified atrial fibrillation; R11.0 Nausea; I10 Essential (primary) hypertension; E78.5 Hyperlipidemia, unspecified; E03.9 Hypothyroidism, unspecified; R94.31 Abnormal electrocardiogram [ECG] [EKG]
CPT/HCPCS: 36415; 80053; 83690; 83880; 84484; 85025; 93005; 99284; J1644; J3010; J7050